=== PATIENT | female | born 1975 | race Caucasian/White ===

== ENCOUNTER 2016-02-21 08:13 | Emergency (ER) | payer SELFPAY ==
[~2016-02-21] VITALS: Ht 170.2 cm; Wt 52.0 kg
[~2016-02-21 08:13] MED LIST: CLIN1CAP5 PO; IBUP-232 PO; TRAM50TA PO; XANA1TAB2 PO
[2016-02-21 08:21] VITALS: BP 131/91; PULSE 107; RESP 18; TEMP 97.9; O2SAT 100
[2016-02-21] MEDS ORDERED: PROPARACAINE HCL 0.5% OPHT SOLN 15 ML BTL EACH EYE ONE (08:30)
[2016-02-21] MEDS ORDERED: NORC5TAB PO (08:48)
[2016-02-21] MEDS ORDERED: POLY10O RIGHT EYE (08:48)
--- NOTE | 2016-02-21 08:48 | PD ---
HPI Chief Complaint: Eye Problems/Injury Time Seen by Provider: 08:26 Travel History International Travel<30 days: No Contact w/Intl Traveler<30days: No Traveled to known affect area: No History of Present Illness HPI 40-year-old female complains of right eye pain and tearing. Patient states that the symptoms started yesterday. Patient's complains of photophobia also. Patient denies any direct injury to the right eye. Patient states the pain the sharp burning pain localized to right eye. Patient denies any pain radiation. 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 Crab (Verified Allergy, Unknown, 02/21/16) Shrimp (Verified Allergy, Unknown, 02/21/16) White Fish (Verified Allergy, Unknown, 02/21/16) Reported Meds & Prescriptions Reported Meds & Active Scripts Active Reported Xanax (Alprazolam) 1 Mg Tab 1 Mg PO Q8H PRN Review of Systems General / Constitutional: No: Fever Eyes: Positive: Photophobia, Pain, Tearing, No: Visual changes HENT: No: Headaches Cardiovascular: No: Chest Pain or Discomfort Respiratory: No: Shortness of Breath Gastrointestinal: No: Abdominal Pain Genitourinary: No: Dysuria Musculoskeletal: No: Pain Skin: No Rash Neurologic: No: Weakness Psychiatric: No: Depression Endocrine: No: Polydipsia Hematologic/Lymphatic: No: Easy Bruising Physical Exam Narrative GENERAL: Well-nourished, well-developed patient. SKIN: Warm and dry. HEAD: Normocephalic. EYES: Right conjunctiva mild erythematous. Pupils 3 mm equal reactive. Right eye stained with fluorescein stain shows a small uptake on the cornea. No evidence of foreign body noted. Upper eyelid and lower lids inverted no evidence of foreign body. NECK: Supple, trachea midline. No JVD or lymphadenopathy. CARDIOVASCULAR: Regular rate and rhythm without murmurs, gallops, or rubs. RESPIRATORY: Breath sounds equal bilaterally. No accessory muscle use. GASTROINTESTINAL: Abdomen soft, non-tender, nondistended. MUSCULOSKELETAL: No cyanosis, or edema. BACK: Nontender without obvious deformity. No CVA tenderness. Data Data Last Documented VS Vital Signs Date Time Temp Pulse Resp B/P Pulse Ox O2 Delivery O2 Flow Rate FiO2 02/21/16 08:21 97.9 107 18 131/91 100 Orders Proparacaine 0.5% Opth Soln (Alcaine 0.5 (02/21/16 08:30) MDM Medical Decision Making Medical Screen Exam Complete: Yes Emergency Medical Condition: Yes Differential Diagnosis Differential diagnosis including foreign body, corneal abrasion, uveitis, iritis , glaucoma. Narrative Course 40-year-old female with right eye pain, tearing, photophobia. Diagnosis Primary Impression: Right corneal abrasion Qualified Code: S05.01XA - Right corneal abrasion, initial encounter Additional Instructions: Take medications as directed. Eyedrops as directed. Follow-up with last code striper if persistent problem or worse. Med/Other Pt SpecificInfo: Prescription(s) given Scripts Hydrocodone-Acetaminophen ([place])5-325 mg Tab1 Tab PO Q6H PRN (PAIN) #10 TAB Ref 0 Prov:Colt Moran MD 02/21/16 Polymyxin B-Trimethoprim Opth Drops (Polytrim Opth Drops)10,000-0.1 Unit/Ml-% Soln1 Drop RIGHT EYE Q6HR #1 BOTTLE Ref 0 Prov:Colt Moran MD 02/21/16 Disposition: 01 DISCHARGE HOME Condition: Stable Colt Moran MD Feb 21, 2016 08:48
== END 2016-02-21 09:04 | disposition home or self-care (01) ==
LOC: PHEFT 08:13
DX: S05.01XA Injury of conjunctiva and corneal abrasion without foreign body, right eye, initial encounter (principal); H53.149 Visual discomfort, unspecified; F17.200 Nicotine dependence, unspecified, uncomplicated; Z86.59 Personal history of other mental and behavioral disorders; X58.XXXA Exposure to other specified factors, initial encounter
CPT/HCPCS: 99283

== ENCOUNTER 2017-06-09 22:38 | Emergency (ER) | payer OTHER ==
[~2017-06-09] VITALS: Ht 170.2 cm; Wt 58.0 kg
[~2017-06-09 22:38] MED LIST changes: -CLIN1CAP5 PO; -IBUP-232 PO; +NORC5TAB PO; +POLY10O RIGHT EYE; -TRAM50TA PO
[2017-06-09] MEDS ORDERED: TETANUS/DIPHTHERIA TOXOID ADULT 0.5 ML VIAL IM ONE (22:45)
[2017-06-09] MEDS ORDERED: LIDOCAINE 1%/EPINEPHrine 1:100,000 SOLN 20 ML VIAL INFIL ONE (22:45)
[2017-06-09 22:49] VITALS: BP 119/73; PULSE 99; RESP 18; TEMP 98.3; O2SAT 98
--- NOTE | 2017-06-09 22:51 | PD ---
HPI Chief Complaint: Laceration/Skin Injury Time Seen by Provider: 22:45 Travel History International Travel<30 days: No Contact w/Intl Traveler<30days: No Traveled to known affect area: No History of Present Illness HPI 41-year-old female complains of laceration right elbow. Patient states that she put her arm through a glass window. Patient states that she has laceration to the right antecubital area of the right elbow. Patient denies any other injury. Patient states that she is not up-to-date with TD booster. Patient denies any weakness or numbness of the right arm. Patient denies any chance of being . PFSH Past Medical History Anxiety: Yes Diminished Hearing: No Psychiatric: Yes (PANIC DISORDER) : 1 Para: 0 Miscarriage: 0 : 1 Past Surgical History Oral Surgery: Yes (WISDOM TEETH) Social History Alcohol Use: No (DENIES) Tobacco Use: Yes (1PPD) Substance Use: Yes Allergies-Medications (Allergen,Severity, Reaction): Coded Allergies: penicillin V (Unverified Allergy, Severe, unknown, 09/20/16) *MDRO Multi-Drug Resistant Organism (Verified Allergy, Unknown, 12/26/15) MRSA Fish Containing Products (Unverified Allergy, Unknown, 09/20/16) crab (Unverified Allergy, Unknown, 09/20/16) shrimp (Unverified Allergy, Unknown, 09/20/16) Reported Meds & Prescriptions Reported Meds & Active Scripts Active [place] (Hydrocodone-Acetaminophen) 5-325 mg Tab 1 Tab PO Q6H PRN Polytrim Opth Drops (Polymyxin/Trimethoprim Sulfate) 10,000-0.1 Unit/Ml-% Soln 1 Drop RIGHT EYE Q6HR Reported Xanax (Alprazolam) 1 Mg Tab 1 Mg PO Q8H PRN Review of Systems General / Constitutional: No: Fever Eyes: No: Visual changes HENT: No: Headaches Cardiovascular: No: Chest Pain or Discomfort Respiratory: No: Shortness of Breath Gastrointestinal: No: Abdominal Pain Genitourinary: No: Dysuria Musculoskeletal: No: Pain Skin: No Rash Neurologic: No: Weakness Psychiatric: No: Depression Endocrine: No: Polydipsia Hematologic/Lymphatic: No: Easy Bruising Physical Exam Narrative GENERAL: Well-nourished, well-developed patient. SKIN: Focused skin assessment warm/dry. HEAD: Normocephalic. EYES: No scleral icterus. No injection or drainage. NECK: Supple, trachea midline. No JVD or lymphadenopathy. CARDIOVASCULAR: Regular rate and rhythm without murmurs, gallops, or rubs. RESPIRATORY: Breath sounds equal bilaterally. No accessory muscle use. GASTROINTESTINAL: Abdomen soft, non-tender, nondistended. MUSCULOSKELETAL: No cyanosis, or edema. BACK: Nontender without obvious deformity. No CVA tenderness. Patient has 1 cm deep laceration to the antecubital area of the right forearm. No active bleeding. Sensory motor function distally intact. Data Data Orders Orders Lidocai-Epi 1%-1:100,000 Inj (Xylocaine- (06/09/17 22:45) Tetanus/Diphtheria Tox Adult (Tetanus/Di (06/09/17 22:45) Elbow, Limited (Ap&Lat) (06/09/17 22:47) MDM Medical Decision Making Medical Screen Exam Complete: Yes Emergency Medical Condition: Yes Differential Diagnosis Differential diagnosis including skin laceration, ligament injury, joint injury , foreign body. Narrative Course 41-year-old female with right forearm laceration. Td booster given. Diagnosis Primary Impression: Laceration of right forearm Qualified Codes: S51.811A - Laceration without foreign body of right forearm, initial encounter Patient Instructions: General Instructions Med/Other Pt SpecificInfo: No Change to Meds Disposition: 01 DISCHARGE HOME Condition: Stable Colt Moran MD June 09, 2017 22:51
--- NOTE | 2017-06-09 23:27 | RADRPT ---
EXAM DATE/TIME: 06/09/2017 22:58 [facility] COMPARISON: No previous studies available for comparison. INDICATIONS : Evaluate for foreign body. Right arm went through glass. Laceration to right elbow. MEDICAL HISTORY : None. SURGICAL HISTORY : None. ENCOUNTER: Initial ACUITY: 1 day PAIN SCORE: 1/10 LOCATION: Right upper extremity FINDINGS: Two view examination of the right elbow demonstrates no soft tissue swelling, joint effusion, fractur e or dislocation. Bony mineralization is normal. No foreign body. CONCLUSION: Unremarkable limited examination of the right elbow. Ayo Shepard MD on June 09, 2017 at 23:24 Board Certified Radiologist. This report was verified electronically.
== END 2017-06-09 23:48 | disposition left against medical advice (07) ==
LOC: PHED 22:38
DX: S51.811A Laceration without foreign body of right forearm, initial encounter (principal); F41.9 Anxiety disorder, unspecified; F17.200 Nicotine dependence, unspecified, uncomplicated; W25.XXXA Contact with sharp glass, initial encounter; Z23 Encounter for immunization; Z88.0 Allergy status to penicillin; Z79.899 Other long term (current) drug therapy
CPT/HCPCS: 73070; 90471; 90714